=== PATIENT | male | born 1950 | race Two or more races ===

== ENCOUNTER → 2018-12-15 | Day surgery (SDC) | payer OTHER | END | disposition home or self-care (01) | LOC: ADM 12-13 15:15 → AMB-ENDOS 06:00 | DX: K64.2 Third degree hemorrhoids (principal) ==

== ENCOUNTER 2021-04-15 06:13 | Day surgery (SDC) | payer OTHER ==
[~2021-04-15 06:13] MED LIST: FENOFIBRATE54 MG PO; FINASTERIDE5 MG PO; LIPOFEN50 MG PO; TAMS0.4C PO; ZESTRIL20 MG PO
== END 2021-04-15 17:45 | disposition home or self-care (01) ==
LOC: CIR.AMB 06:13
PROVIDERS: ATTEND Colon & Rectal Surgery
DX: K64.8 Other hemorrhoids (principal); K64.4 Residual hemorrhoidal skin tags; Z20.822 Contact with and (suspected) exposure to COVID-19